=== PATIENT | male | born 1945 | race Caucasian/White ===

== ENCOUNTER 2019-01-24 15:09 | Inpatient (IN) | payer MEDICARE, OTHER ==
[~2019-01-24] VITALS: Ht 170.2 cm; Wt 80.3 kg
[~2019-01-24 15:09] MED LIST: ACET-2031 PO; ALBU8.5H IH; ALBU8HFA INH; AZIT-1 PO; AZIT-9 PO; BUDE10.2 IH; CEFU250 PO; GLUC1TAB13 PO; GUALA600 PO; IBU200 PO; LEV100 PO; LEVO-317 PO; MELO-149 PO; MELO-150 PO; METH4TAB66 PO; MULT-1335 PO; MULT-865 PO; PRE10 PO; ROBC PO; SILD100T59 PO
[2019-01-24] MEDS ORDERED: AZITHROMYCIN(*) 500 MG 500 MG in NS(*) 0.9% 250 ML BAG 250 ML IVPB ONE (15:30)
[2019-01-24] MEDS ORDERED: LR IV ONE (15:30)
[2019-01-24] MEDS ORDERED: cefTRIAXone(*) 1 GM VIAL 1 GM in NS(*) 0.9% 100 ML MINI-BAG 100 ML IVPB ONE (15:30)
[2019-01-24 15:48] LABS: PLATELET COUNT, AUTOMATED 250 K/uL (150-450)
--- NOTE | 2019-01-24 15:48 | ER Report ---
History and Physical Time Seen By MD: 15:15 Hx. of Stated Complaint: SOB, PAIN WITH COUGHING AND PHLEGM TINGED BLOOD (SHEKHAR ROBLERO MD) HPI/ROS CHIEF COMPLAINT: Cough, difficulty breathing HISTORY OF PRESENT ILLNESS: 73-year-old male history of sleep apnea, without CHF or COPD or tobacco use, presents with 6 days of cough, congested feeling on the left lower chest, increased difficulty breathing. This is been worse overnight. He states he has been trying to drink fluids but feels he probably has not had e nough. He complains of tightness in the lower left chest area that he feels is associated with congestion. He denies chest pain or pressure. He states he feels occasional chills. He feels fatigued. He has no focal weakness. He denies nausea, vomiting, abdominal pain, change in urination, leg swelling. He has no recent significant travel. He has no sick contacts. REVIEW OF SYSTEMS: Constitutional: chills Eyes: no blurred vision ENT: No sore throat. Cardiovascular: No chest pain, no palpitations. Respiratory: above Gastrointestinal: No abdominal pain, no vomiting. Genitourinary: no dysuria Musculoskeletal: No back pain. Skin: No rashes. Neurological: No headache. Remainder of the 14 system rev: Yes (SHEKHAR ROBLERO MD) Allergies: Coded Allergies: No Known Drug Allergies (Unverified , 12/28/14) Home Meds Reported Medications Sildenafil Citrate (VIAGRA) 100 Mg Tablet, 1 TAB PO QDAY PRN for sexual activity 12/28/14 Glucosamine Hcl/Chondr Duke A Na (OSTEO BI-FLEX CAPLET) 1 Each Tablet, 1 TAB PO QDAY 06/29/14 Levothyroxine Sodium (LEVOXYL) 125 Mcg Tablet, 1 TAB PO QDAY 06/28/14 Albuterol Sulfate 90 Mcg/Act (PROAIR HFA 90 MCG/ACT) 8.5 Gm Hfa.aer.ad, 2 PUFF IH QID PRN for shortness of breath 06/28/14 Multivitamin (DAILY MULTIPLE VITAMIN) 1 Each Tablet, 1 TAB PO DAILY 06/28/14 Meloxicam (MOBIC) 15 Mg Tablet, 1 TAB PO QDAY PRN for pain 06/28/14 Discontinued Scripts Guaifenesin/Codeine (GUAIFENESIN-CODEINE SYRUP) 5 Ml Syrp, 5 ML PO Q6H PRN for COUGH, #120 ML 0 Refills Prov:KEISHA ACE MD 09/03/16 Methylprednisolone (METHYLPREDNISOLONE) 4 Mg Tab.ds.pk, 4 MG PO DIRECTED, #1 PACK 0 Refills Prov:KEISHA ACE MD 09/03/16 Azithromycin (ZITHROMAX) 250 Mg Tablet, 2 TAB PO DIRECTED, #6 TAB 0 Refills Take 2 tablets today, then one daily for 4 more days. Prov:KEISHA ACE MD 09/03/16 Reviewed Nurses Notes: Yes Old Medical Records Reviewed: Yes (SHEKHAR ROBLERO MD) Hx Smoking: No Smoking Status: Never Smoker Exposure to Second Hand Smoke?: Yes (also workd in [employer] and exposed to fumes) Hx Substance Use Disorder: No Hx Alcohol Use: Yes (SHEKHAR ROBLERO MD) Constitutional Vital Sign - Last 24 Hours 01/24/19 01/24/19 01/24/19 01/24/19 15:09 15:14 15:15 15:39 Temp 99.2 Pulse ??? 125 117 Resp 19 19 B/P (MAP) 129/79 129/79 (96) Pulse Ox 89 89 O2 Delivery Room Air 01/24/19 01/24/19 01/24/19 01/24/19 16:00 16:09 16:14 16:33 Pulse 114 Resp 22 B/P (MAP) 110/76 (87) 113/84 (94) Pulse Ox 93 O2 Flow Rate 1.0 01/24/19 01/24/19 01/24/19 01/24/19 16:39 17:00 17:00 17:30 Pulse 106 104 108 Resp 34 25 B/P (MAP) 115/85 (95) 115/85 (95) 122/94 (103) Pulse Ox 92 91 89 01/24/19 01/24/19 01/24/19 01/24/19 18:15 18:30 18:35 19:00 Pulse 107 107 Resp 32 27 B/P (MAP) 123/87 (99) 115/78 (90) 121/79 (93) Pulse Ox 91 92 01/24/19 19:05 Pulse 103 Resp 22 Pulse Ox 92 (SHEKHAR CARRANZA MD) Physical Exam General Appearance: The patient is alert, has no immediate need for airway protection and no signs of toxicity. Eyes: Pupils equal and round no pallor or injection. ENT, Mouth: Mucous membranes are moist. Respiratory: left lower thoracic congestion, frequent cough Cardiovascular: tachycardia, no m/r/g Gastrointestinal: Abdomen is soft and non tender, no masses, bowel sounds normal. Neurological: alert, oriented, nad Skin: mild diaphoresis Musculoskeletal: Extremities are nontender, nonswollen and have full range of motion. DIFFERENTIAL DIAGNOSIS: After history and physical exam differential diagnosis was considered for pneumonia, sepsis, pleural effusion, acs, or other emergent cause of symptoms (SHEKHAR ROBLERO MD) Medical Decision Making Data Points Result Diagram: 01/25/19 0535 01/25/19 0535 Laboratory Hematology Test 01/24/19 15:20 01/24/19 19:47 Red Blood Count 4.70 M/uL (4.00-5.60) Mean Corpuscular Volume 89.7 fL (80.0-96.0) Mean Corpuscular Hemoglobin 31.2 pg (26.0-33.0) Mean Corpuscular Hemoglobin Concent 34.8 g/dL (32.0-36.0) Red Cell Distribution Width 12.9 % (11.5-14.5) Mean Platelet Volume 7.0 fL (7.2-11.1) Neutrophils (%) (Auto) % (39.4-72.5) Lymphocytes (%) (Auto) % (17.6-49.6) Monocytes (%) (Auto) % (4.1-12.4) Eosinophils (%) (Auto) % (0.4-6.7) Basophils (%) (Auto) % (0.3-1.4) Nucleated RBC Relative Count (auto) /100WBC Neutrophils # (Auto) K/uL (2.0-7.4) Lymphocytes # (Auto) K/uL (1.3-3.6) Monocytes # (Auto) K/uL (0.3-1.0) Eosinophils # (Auto) K/uL (0.0-0.5) Basophils # (Auto) K/uL (0.0-0.1) Nucleated RBC Absolute Count (auto) K/uL Neutrophils % (Manual) 62 % (39.4-72.5) Band Neutrophils % 16 % Lymphocytes % (Manual) 8 % (17.6-49.6) Monocytes % (Manual) 2 % (4.1-12.4) Eosinophils % (Manual) 0 % (0.4-6.7) Basophils % (Manual) 0 % (0.3-1.4) Metamyelocytes % 3 % Myelocytes % 9 % Peripheral Blood Smear Yes Y/N Sodium Level 126 mmol/L (137-145) Potassium Level 4.2 mmol/L (3.5-5.0) Chloride Level 91 mmol/L (98-107) Carbon Dioxide Level 23 mmol/L (22-30) Blood Urea Nitrogen 23 mg/dl (9-21) Creatinine 1.00 mg/dl (0.66-1.25) Glomerular Filtration Rate Calc > 60.0 Random Glucose 150 mg/dl (75-110) Lactate 2.7 mmol/L (0.7-2.1) Calcium Level 8.5 mg/dl (8.4-10.2) Total Bilirubin 1.1 mg/dl (0.2-1.3) Aspartate Amino Transf (AST/SGOT) 40 U/L (0-35) Alanine Aminotransferase (ALT/SGPT) 28 U/L (0-56) Alkaline Phosphatase 81 U/L (0-126) Troponin I < 0.012 ng/ml Total Protein 7.0 g/dl (6.3-8.2) Albumin 3.7 g/dl (3.5-5.0) Urine Color Yellow Urine Clarity Clear Urine pH 6.0 pH (4.8-9.5) Urine Specific [place] 1.018 Urine Protein Negative mg/dL (NEGATIVE) Urine Glucose (UA) Negative mg/dL (NEGATIVE) Urine Ketones Negative mg/dL (NEGATIVE) Urine Blood Negative (NEGATIVE) Urine Nitrite Negative (NEGATIVE) Urine Bilirubin Negative (NEGATIVE) Urine Urobilinogen Negative mg/dL (0.2-1.9) Urine Leukocyte Esterase Negative (NEGATIVE) Urine RBC <1 /HPF (0-2/HPF) Urine WBC <1 /HPF (0-5/HPF) Urine Squamous Epithelial Cells Few /LPF (</=FEW) Urine Bacteria Negative /HPF (NONE-FEW) Urine Mucus None /HPF (NONE-FEW) Chemistry Test 01/24/19 15:20 01/24/19 19:47 White Blood Count 12.4 k/uL (4.5-11.0) Red Blood Count 4.70 M/uL (4.00-5.60) Hemoglobin 14.7 g/dL (14.0-18.0) Hematocrit 42.2 % (42.0-52.0) Mean Corpuscular Volume 89.7 fL (80.0-96.0) Mean Corpuscular Hemoglobin 31.2 pg (26.0-33.0) Mean Corpuscular Hemoglobin Concent 34.8 g/dL (32.0-36.0) Red Cell Distribution Width 12.9 % (11.5-14.5) Platelet Count 250 K/uL (150-450) Mean Platelet Volume 7.0 fL (7.2-11.1) Neutrophils (%) (Auto) % (39.4-72.5) Lymphocytes (%) (Auto) % (17.6-49.6) Monocytes (%) (Auto) % (4.1-12.4) Eosinophils (%) (Auto) % (0.4-6.7) Basophils (%) (Auto) % (0.3-1.4) Nucleated RBC Relative Count (auto) /100WBC Neutrophils # (Auto) K/uL (2.0-7.4) Lymphocytes # (Auto) K/uL (1.3-3.6) Monocytes # (Auto) K/uL (0.3-1.0) Eosinophils # (Auto) K/uL (0.0-0.5) Basophils # (Auto) K/uL (0.0-0.1) Nucleated RBC Absolute Count (auto) K/uL Neutrophils % (Manual) 62 % (39.4-72.5) Band Neutrophils % 16 % Lymphocytes % (Manual) 8 % (17.6-49.6) Monocytes % (Manual) 2 % (4.1-12.4) Eosinophils % (Manual) 0 % (0.4-6.7) Basophils % (Manual) 0 % (0.3-1.4) Metamyelocytes % 3 % Myelocytes % 9 % Peripheral Blood Smear Yes Y/N Glomerular Filtration Rate Calc > 60.0 Lactate 2.7 mmol/L (0.7-2.1) Calcium Level 8.5 mg/dl (8.4-10.2) Total Bilirubin 1.1 mg/dl (0.2-1.3) Aspartate Amino Transf (AST/SGOT) 40 U/L (0-35) Alanine Aminotransferase (ALT/SGPT) 28 U/L (0-56) Alkaline Phosphatase 81 U/L (0-126) Troponin I < 0.012 ng/ml Total Protein 7.0 g/dl (6.3-8.2) Albumin 3.7 g/dl (3.5-5.0) Urine Color Yellow Urine Clarity Clear Urine pH 6.0 pH (4.8-9.5) Urine Specific [place] 1.018 Urine Protein Negative mg/dL (NEGATIVE) Urine Glucose (UA) Negative mg/dL (NEGATIVE) Urine Ketones Negative mg/dL (NEGATIVE) Urine Blood Negative (NEGATIVE) Urine Nitrite Negative (NEGATIVE) Urine Bilirubin Negative (NEGATIVE) Urine Urobilinogen Negative mg/dL (0.2-1.9) Urine Leukocyte Esterase Negative (NEGATIVE) Urine RBC <1 /HPF (0-2/HPF) Urine WBC <1 /HPF (0-5/HPF) Urine Squamous Epithelial Cells Few /LPF (</=FEW) Urine Bacteria Negative /HPF (NONE-FEW) Urine Mucus None /HPF (NONE-FEW) Urinalysis Test 01/24/19 19:47 Urine Color Yellow Urine Clarity Clear Urine pH 6.0 pH (4.8-9.5) Urine Specific [place] 1.018 Urine Protein Negative mg/dL (NEGATIVE) Urine Glucose (UA) Negative mg/dL (NEGATIVE) Urine Ketones Negative mg/dL (NEGATIVE) Urine Blood Negative (NEGATIVE) Urine Nitrite Negative (NEGATIVE) Urine Bilirubin Negative (NEGATIVE) Urine Urobilinogen Negative mg/dL (0.2-1.9) Urine Leukocyte Esterase Negative (NEGATIVE) Urine RBC <1 /HPF (0-2/HPF) Urine WBC <1 /HPF (0-5/HPF) Urine Squamous Epithelial Cells Few /LPF (</=FEW) Urine Bacteria Negative /HPF (NONE-FEW) Urine Mucus None /HPF (NONE-FEW) (SHEKHAR CARRANZA MD) EKG/Imaging EKG Interpretation 12 lead EKG: Rhythm: sinus tachycardia [place]: right axis deviation QRS: widened ST segments: c/w rbbb sinus tachycardia with rbbb EKG morphology unchanged from 2014 Monitor Interpretation: Sinus Tachycardia (SHEKHAR ROBLERO MD) ED Course/Re-evaluation ED Course 73 m presents with sgs/symptoms of pneumonia with dehydration/early sepsis. IVF 30 cc/kg initiated, cultures drawn and abx initated early. Remains hd stable in ED. cxr shows atypical l sided pneumonia; ct ordered to better delineate. Decision to Disposition Date: January 24, 2019 Decision to Disposition Time: 17:07 (SHEKHAR ROBLERO MD) Decision to Disposition Date: January 24, 2019 Decision to Disposition Time: 20:21 Turned Over 01/24/2019 6:27:25 pm and assumed care of patient at this time briefly a 73-year-old male who is being treated for sepsis and pneumonia. CT scan of the chest is pending prior to admission. (SHEKHAR CARRANZA MD) Depart Departure Latest Vital Signs Vital Signs Date Time Temp Pulse Resp B/P (MAP) Pulse Ox O2 Delivery O2 Flow Rate FiO2 01/24/19 19:05 103 22 92 01/24/19 19:00 121/79 (93) 01/24/19 16:00 1.0 01/24/19 15:14 99.2 Room Air (SHEKHAR CARRANZA MD) Impression: Primary Impression: Pneumonia Condition: Improved Disposition: Admitted from ER Referrals: OSWALD ANDERSEN MD (PCP) Problem Qualifiers Primary Impression: Pneumonia Pneumonia type: due to unspecified organism Laterality: left Lung location: unspecified part of lung Qualified Codes: J18.9 - Pneumonia, unspecified organism SHEKHAR ROBLERO MD January 24, 2019 15:48 SHEKHAR CARRANZA MD January 24, 2019 18:27
--- NOTE | 2019-01-24 15:54 | EKG ---
FACILITY: [facility] PATIENT NAME: GLEN ROJO : [id number] MR: [id number] V: [id number] EXAM DATE: ORDERING PHYSICIAN: SHEKHAR ROBLERO TECHNOLOGIST: MOIRA Test Reason : CHEST PAIN Blood Pressure : / mmHG Vent. Rate : 115 BPM Atrial Rate : 115 BPM P-R Int : 142 ms QRS Dur : 132 ms QT Int : 354 ms P-R-T Axes : 054 -08 019 degrees QTc Int : 489 ms Sinus tachycardia Right bundle branch block Abnormal ECG When compared with ECG of 22-FEB-2014 13:31, Vent. rate has increased BY 45 BPM T wave inversion now evident in Anterior leads Confirmed by LINO MARTINEZ ([id number]) on 01/24/2019 7:09:35 PM Referred By: OSBALDO Confirmed By:LINO MARTINEZ
--- NOTE | 2019-01-24 16:41 | RADIOLOGY IMAGING REPORT ---
FACILITY: [facility] [place] PATIENT NAME: Toya Banuelos : 1945 MR: [id number] V: [id number] EXAM DATE: ORDERING PHYSICIAN: SHEKHAR ROBLERO TECHNOLOGIST: Location: [facility] [place] Patient: Toya Banuelos : 1945 Visit/Account:[id number] Date of Sevice: 01/24/2019 CHEST PA LAT Additional pertinent History: Chest pain COMPARISON STUDIES: 09/03/2016 FINDINGS: Support lines and catheters: Oxygen tubing Lungs and Pleura: There is a dense ovoid opacity extending from the posterior right sixth rib to the posterior ninth rib measuring 12 x 5.5 cm in dimension. There is a peripheral hazy opacity circumscr ibing the superior medial and inferior aspects of this opacity partially obscuring the medial aspect of the left hemidiaphragm on the AP and posterior aspect of the hemidiaphragm on the lateral. Right l fanny field is clear.. Heart and vasculature: Negative. Dora and Mediastinum: Negative. Bones and Chest wall: Negative. Upper Abdomen: Negative. IMPRESSION: 1. Parenchymal mass density in the left lung. Differential includes both pneumonic and neoplastic pro cesses. Recommend clinical correlation and appropriate follow-up. Report Dictated By: Bobby Watt MD at 01/24/2019 4:33 PM Report E-Signed By: Bobby Watt MD at 01/24/2019 4:37 PM WSN:[id number]
[2019-01-24] MEDS ORDERED: methylPREDNIS SUCC 125 MG/2ML IVP ONE (17:10)
[2019-01-24] MEDS ORDERED: LR(*) 1000 ML BAG 1,000 ML ONE (17:26)
[2019-01-24] MEDS ORDERED: IOPAMIDOL 76% 100 ML INFUS BTL 100 ML ONE (18:06)
[2019-01-24] MEDS ORDERED: NS(*) 0.9% 50 ML BAG 50 ML ONE (18:06)
--- NOTE | 2019-01-24 19:56 | RADIOLOGY IMAGING REPORT ---
FACILITY: [facility] PATIENT NAME: Toya Banuelos : 1945 MR: [id number] V: [id number] EXAM DATE: ORDERING PHYSICIAN: SHEKHAR ROBLERO TECHNOLOGIST: Location: [facility] [place] Patient: Toya Banuelos : 1945 Visit/Account:[id number] Date of Sevice: 01/24/2019 EXAMINATION: CTA of the chest with IV contrast HISTORY: Dyspnea. Left-sided atypical infiltrate. COMPARISON: Chest radiograph from the same day. TECHNIQUE: Pulmonary embolus protocol - Thin-slice axial imaging of the chest was performed during maximal pulmonary arterial opacification with intravenous nonionic iodinated contrast. 3D coronal sla b MIPs and 2D reconstructions in the coronal and sagittal planes were performed to aid in pulmonary e mbolus detection. Dock Operator images have been stored on PACS. CONTRAST: 75 mL of IV Isovue-370 One of the following dose optimization techniques was utilized in the performance of this exam: Autom ated exposure control; adjustment of the mA and/or kV according to the patient's size; or use of an i terative reconstruction technique. Specific details can be referenced in the facility's radiology C T exam operational policy. FINDINGS: CTA CHEST: Please note that this exam is optimized for assessment of the pulmonary arteries and is not intended as a diagnostic study of the thoracic aorta, coronary arteries or venous structures. Angiographic Findings: Pulmonary arteries: There are no filling defects in the main, right, left, lobar, segmental or visual ized sub-segmental branches of the pulmonary arterial system. Other vasculature: Mild calcified plaque of the thoracic aorta. Additional non-angiographic findings: Lungs / Pleura: Extensive consolidation in the left lung within the upper and lower lobes. There is bronchiectasis in the left lower lobe and volume loss in the left lower lobe. There is a small left pleural effusion. There is patchy opacification in the airways in the left lung. Mediastinum / Dora: Negative. Heart / Pericardium: Negative. Musculoskeletal / Body wall: Chronic healed fracture deformities of multiple left-sided ribs. Multi level disc degenerative changes in the spine. Lymph node assessment: Multiple subcentimeter mediastinal lymph nodes. Lower neck: Negative. Visualized upper abdomen: Multiple hepatic cysts. A 1.2 cm hypoattenuating lesion in the head of the pancreas. IMPRESSION: No evidence of pulmonary embolism. Extensive consolidation in the left lung which likely represents pneumonia. There is also bronchiectasis and volume loss in the left lower lung lobe. Small left pleural effusion. A 1.2 cm hypoattenuating lesion in the neck of the pancreas which has been noted on multiple previous examinations and is unchanged. Report Dictated By: Lico Javed MD at 01/24/2019 7:35 PM Report E-Signed By: Lico Javed MD at 01/24/2019 7:52 PM WSN:[id number]
[2019-01-24] MEDS ORDERED: INFLUENZA VIRUS VAC 0.5ML SYR IM ONLY ONE (20:25)
[2019-01-24] MEDS ORDERED: ALBUTEROL 2.5 MG/3 ML NEB NEB PRN (20:25)
[2019-01-24] MEDS: ALBUTEROL/IPRATROPIUM 3 ML NEB NEB SCH (20:25)
[2019-01-24] MEDS ORDERED: ACETAMINOPHEN 500 MG TAB PO PRN (20:25)
[2019-01-24] MEDS ORDERED: cefTRIAXone 1 GM VIAL IVP ONE (20:25)
--- NOTE | 2019-01-24 20:53 | History & Physical ---
History of Present Illness History of Present Illness 73yo male with a h/o bronchiectasis and ADELAIDA who came to the ER for coughing and pleuritic chest pain for 3 days. About 7 days ago, he started feeling wheezy, achy, tired and chilled. Those symptoms persisted. 3 days ago, he developed a cough and pain in his left chest that worsened with coughing. The pain was dull, but could be severe. However, it resolved today after taking some ibuprofen. He denies diarrhea, vomiting. In the ER, he was tachycardic to 125 and had a sbp of 129. He was given 2.2 liters of LR, ceftriaxone, azithromycin, and methylprednisolone. History Problems: (1) Hypothyroidism Status: Acute (2) Bronchiectasis without acute exacerbation Status: Acute Home Meds Reported Medications Sildenafil Citrate (VIAGRA) 100 Mg Tablet, 1 TAB PO QDAY PRN for sexual activity 12/28/14 Glucosamine Hcl/Chondr Duke A Na (OSTEO BI-FLEX CAPLET) 1 Each Tablet, 1 TAB PO QDAY 06/29/14 Levothyroxine Sodium (LEVOXYL) 125 Mcg Tablet, 1 TAB PO QDAY 06/28/14 Albuterol Sulfate 90 Mcg/Act (PROAIR HFA 90 MCG/ACT) 8.5 Gm Hfa.aer.ad, 2 PUFF IH QID PRN for shortness of breath 06/28/14 Multivitamin (DAILY MULTIPLE VITAMIN) 1 Each Tablet, 1 TAB PO DAILY 06/28/14 Meloxicam (MOBIC) 15 Mg Tablet, 1 TAB PO QDAY PRN for pain 06/28/14 Discontinued Scripts Guaifenesin/Codeine (GUAIFENESIN-CODEINE SYRUP) 5 Ml Syrp, 5 ML PO Q6H PRN for COUGH, #120 ML 0 Refills Prov:KEISHA ACE MD 09/03/16 Methylprednisolone (METHYLPREDNISOLONE) 4 Mg Tab.ds.pk, 4 MG PO DIRECTED, #1 PACK 0 Refills Prov:KEISHA ACE MD 09/03/16 Azithromycin (ZITHROMAX) 250 Mg Tablet, 2 TAB PO DIRECTED, #6 TAB 0 Refills Take 2 tablets today, then one daily for 4 more days. Prov:KEISHA ACE MD 09/03/16 Allergies: Coded Allergies: No Known Drug Allergies (Unverified , 12/28/14) Patient History: FH: HTN (hypertension) FATHER, , Age:83 BROTHER OR SISTER, Age:66 FH: NV (myocardial infarction) BROTHER OR SISTER, Age:66 FH: abdominal aortic aneurysm MOTHER, , Age:80 FH: diabetes mellitus MOTHER, , Age:80 PATERNAL COUSINS x2 FH: pancreatic cancer BROTHER OR SISTER, , Age:55 FH: smoking FATHER, , Age:83 Stent BROTHER OR SISTER, Age:66 Other Social/Family Hx Never any tobacco use. 1-2 glasses of wine daily. Retired. Hx Smoking: No Smoking Status: Never Smoker Exposure to Second Hand Smoke?: Yes (also workd in [employer] and exposed to fumes) Hx Alcohol Use: Yes Hx Substance Use Disorder: No Review of Systems All Systems Reviewed/Normal: Yes, Except as Noted Exam Vital Signs Vital Signs Date Time Temp Pulse Resp B/P (MAP) Pulse Ox O2 Delivery O2 Flow Rate FiO2 01/24/19 19:05 103 22 92 01/24/19 19:00 121/79 (93) 01/24/19 16:00 1.0 01/24/19 15:14 99.2 Room Air General Appearance: Alert, Awake, No Acute Distress Neuro: No Gross deficits, Other (Knows where he is, the events today, but sometime repeats himself.) Eyes: PERRLA ENT: Moist Mucous Membranes Cardiovascular: Regular Rate and Rhythm Respiratory: Other (Insp crackles and course BS over left lung.) GI: Abd Soft and Non-Tender Extremities: No Edema Integumentary: No Jaundice, No Cyanosis Medical Decision Making Data Points Result Diagram: 01/24/19 1520 01/24/19 1520 Item Value Date Time Neutrophils % (Manual) 62 % 01/24/19 1520 Band Neutrophils % 16 % 01/24/19 1520 Lymphocytes % (Manual) 8 % L 01/24/19 1520 Monocytes % (Manual) 2 % L 01/24/19 1520 Lactate 2.7 mmol/L H 01/24/19 1520 Calcium Level 8.5 mg/dl 01/24/19 1520 Total Bilirubin 1.1 mg/dl 01/24/19 1520 Aspartate Amino Transf (AST/SGOT) 40 U/L H 01/24/19 1520 Alkaline Phosphatase 81 U/L 01/24/19 1520 Troponin I < 0.012 ng/ml 01/24/19 1520 Alanine Aminotransferase (ALT/SGPT) 28 U/L 01/24/19 1520 Urine RBC <1 /HPF 01/24/191946 Urine WBC <1 /HPF 01/24/191946 Urine Squamous Epithelial Cells Few /LPF 01/24/191946 EKG / Imaging EKG Interpretation Vent. Rate : 115 BPM Atrial Rate : 115 BPM P-R Int : 142 ms QRS Dur : 132 ms QT Int : 354 ms P-R-T Axes : 054 -08 019 degrees QTc Int : 489 ms Sinus tachycardia Right bundle branch block Abnormal ECG When compared with ECG of 22-FEB-2014 13:31, Vent. rate has increased BY 45 BPM T wave inversion now evident in Anterior leads Confirmed by LINO MARTINEZ ([id number]) on 01/24/2019 7:09:35 PM Imaging Chest CTA - No evidence of pulmonary embolism. Extensive consolidation in the left lung which likely represents pneumonia. There is also bronchiectasis and volume loss in the left lower lung lobe. Small left pleural effusion. A 1.2 cm hypoattenuating lesion in the neck of the pancreas which has been noted on multiple previous examinations and is unchanged. CXR - 1. Parenchymal mass density in the left lung. Differential includes both pneumonic and neoplastic processes. Recommend clinical correlation and appropriate follow-up. Assessment and Plan Problems: (1) Pneumonia Status: Acute Assessment & Plan: He presented with a week of malaise and 3 days of cough/pleuritic chest pain. He has an elevated WBC with bandemia, hypoxia, mildly elevated lactate, tachycardia and a CT consistent with a diffuse consolidation in the left lung. He was given 2.2 liters of LR in the ER, which brought down his heart rate. He has been started on methylprednisolone, Mucinex, DuoNebs, prn albuterol, ceftriaxone and azithromycin. BP/P stable. He is breathing comfortably. 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 Follow closely. (3) Bronchiectasis without acute exacerbation Status: Acute Assessment & Plan: He reports being cured of bronchiectasis in the left lung by a rn care manager a number of years ago with inhalers. It is seen on the CT. See above. If not improving, will need to broaden coverage for pseudomonas. Copies to: DIPIKA MITCHELL ; Venous Thromboembolism Antithrombotics Is Pt On Any Antithrombotics?: No Exam Sepsis Risk: No Definite Risk Problem Qualifiers (1) Pneumonia: Pneumonia type: due to unspecified organism Laterality: left Lung location: unspecified part of lung Qualified Codes: J18.9 - Pneumonia, unspecified organism LINO MARTINEZ MD January 24, 2019 20:53
[2019-01-24 21:23] VITALS: BP 126/92
[2019-01-24] MEDS: guaiFENesin 600 MG TABCR PO SCH (22:15)
[2019-01-24] MEDS: KCL/D1/2NS 20 MEQ 1000 ML 1,000 ML IV PRN (22:17)
[2019-01-24 22:26] VITALS: BP 129/90
[2019-01-24] MEDS ORDERED: cefTRIAXone 1 GM VIAL ONE (22:42)
[2019-01-25] MEDS ORDERED: methylPREDNIS SUCC 125 MG/2ML IVP SCH (01:00)
[2019-01-25 01:18] VITALS: BP 140/92
[2019-01-25 05:44] LABS: PLATELET COUNT, AUTOMATED 216 K/uL (150-450)
[2019-01-25] MEDS: ALBUTEROL/IPRATROPIUM 3 ML NEB NEB SCH ×3 (05:50→17:06)
[2019-01-25] MEDS: LEVOTHYROXINE SOD 0.125 MG TAB PO SCH (06:13)
[2019-01-25 06:30] VITALS: BP 118/91
--- NOTE | 2019-01-25 09:47 | Hospitalist Progress Note ---
Subjective Progress Notes Subjective He reports feeling improved. Blood cultures are reported to be growing GNR. Physical Exam Vital Signs Date Time Temp Pulse Resp B/P (MAP) Pulse Ox O2 Delivery O2 Flow Rate FiO2 01/25/19 06:30 97.7 106 18 118/91 (100) 93 Nasal Cannula 2.0 Intake and Output 01/25/19 07:00 Intake Total 4550 ml Balance 4550 ml Intake Oral 1200 ml IV Total 3350 ml # Voids 6 General Appearance: Alert, Awake Cardiovascular: Regular Rate and Rhythm Respiratory: Other (rales right posterior chest mid-lung and base) GI: Soft and Non-Tender Extremities: Warm, Perfused Result Diagram: 01/25/19 0535 01/25/19 0535 Monitor Interpretation: Sinus Tachycardia Assessment and Plan Problems: (1) Pneumonia Status: Acute Assessment & Plan: He presented with a week of malaise and 3 days of cough/pleuritic chest pain. He has an elevated WBC with bandemia, hypoxia, mildly elevated lactate, tachycardia and a CT consistent with a diffuse consolidation in the left lung. He has been started on methylprednisolone, Mucinex, DuoNebs, prn albuterol, ceftriaxone and azithromycin. His cultures are now growing GNR. I suspect he may have the bronchiectasis as the etiology. Given this, he would be risk for resistant organisms, so will switch to cefepime 2gm IV q12hrs. Await culture results. 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 Follow closely. (3) Bronchiectasis without acute exacerbation Status: Acute Assessment & Plan: He reports being "cured" of bronchiectasis in the left lung by a manager of quality a number of years ago with inhalers. It is seen on the CT. See above. Will need to broaden coverage for pseudomonas. Await culture results. Exam Sepsis Risk: Sepsis Risk Problem Qualifiers (1) Pneumonia: Pneumonia type: due to unspecified organism Laterality: left Lung location: unspecified part of lung Qualified Codes: J18.9 - Pneumonia, unspecified organism JANETH JIM MD January 25, 2019 09:47
[2019-01-25] MEDS: ENOXAPARIN 40 MG/0.4ML SYR SC SCH (09:49)
[2019-01-25] MEDS: CEFEPIME HCL 2 GM VIAL IVP SCH ×2 (09:49→21:12)
[2019-01-25] MEDS: methylPREDNIS SUCC 125 MG/2ML IVP SCH ×2 (09:50→21:13)
[2019-01-25] MEDS: guaiFENesin 600 MG TABCR PO SCH ×2 (09:50→21:12)
[2019-01-25 10:11] VITALS: Ht 170.2 cm; Wt 80.3 kg
[2019-01-25 14:28] VITALS: BP 149/93
[2019-01-25] MEDS ORDERED: NS(*) 0.9% 250 ML BAG 250 ML ONE (16:11)
[2019-01-25] MEDS: AZITHROMYCIN(*) 500 MG 500 MG in NS(*) 0.9% 250 ML BAG 250 ML IVPB SCH (16:15)
[2019-01-25] MEDS: KCL/D1/2NS 20 MEQ 1000 ML 1,000 ML IV PRN (17:38)
[2019-01-25] MEDS: NAPROXEN 500 MG TAB PO PRN (17:44)
[2019-01-25] MEDS ORDERED: cefTRIAXone 2 GM VIAL IVP SCH (18:00)
[2019-01-25 19:33] VITALS: BP 127/87
[2019-01-26] MEDS: LEVOTHYROXINE SOD 0.125 MG TAB PO SCH (04:45)
[2019-01-26 04:46] VITALS: BP 153/93
[2019-01-26 05:57] LABS: PLATELET COUNT, AUTOMATED 254 K/uL (150-450)
[2019-01-26] MEDS: ALBUTEROL/IPRATROPIUM 3 ML NEB NEB SCH ×3 (06:17→18:19)
[2019-01-26 06:49] VITALS: BP 130/90
[2019-01-26] MEDS: ENOXAPARIN 40 MG/0.4ML SYR SC SCH (08:14)
[2019-01-26] MEDS: predniSONE 10 MG TAB PO SCH (08:14)
[2019-01-26] MEDS: guaiFENesin 600 MG TABCR PO SCH ×2 (08:14→21:09)
[2019-01-26] MEDS: CEFEPIME HCL 2 GM VIAL IVP SCH ×2 (08:15→21:09)
--- NOTE | 2019-01-26 09:39 | Hospitalist Progress Note ---
Subjective Progress Notes Subjective This patient was admitted for pneumonia. He had no acute events overnight. Patient Complains of: Cardiovascular: No: Chest Pain Respiratory: No: Shortness of Breath Physical Exam Vital Signs Date Time Temp Pulse Resp B/P (MAP) Pulse Ox O2 Delivery O2 Flow Rate FiO2 01/26/19 08:15 96 Nasal Cannula 2.0 01/26/19 06:49 97.8 97 16 130/90 (103) Intake and Output 01/26/19 07:00 Intake Total 690 ml Balance 690 ml Intake Oral 690 ml # Voids 5 Cardiovascular: Regular Rate and Rhythm Respiratory: Clear to Auscultation Extremities: No Edema Integumentary: No Cyanosis Result Diagram: 01/26/19 0535 01/26/19 0535 Monitor Interpretation: Sinus Tachycardia Assessment and Plan Problems: (1) Pneumonia Status: Acute Assessment & Plan: He presented with cough and pleuritic chest pain. He also had an elevated WBC with bandemia, hypoxia, mildly elevated lactate, tachycardia and a CT consistent with a diffuse consolidation in the left lung. He was started on methylprednisolone and empiric treatment with azithromycin and cefepime. His cultures are both growing a gram negative danni. (2) Hyponatremia Status: Acute Assessment & Plan: His levels improved with IV fluids. (3) Bronchiectasis without acute exacerbation Status: Acute Assessment & Plan: He reports being "cured" of bronchiectasis in the left lung by a customer service teller a number of years ago with inhalers. However, it is still present on the CT scan. (4) Sepsis Assessment & Plan: He is on antibiotics as above. Exam Sepsis Risk: Sepsis Risk Problem Qualifiers (1) Pneumonia: Pneumonia type: due to unspecified organism Laterality: left Lung location: unspecified part of lung Qualified Codes: J18.9 - Pneumonia, unspecified organism SEVEN TOMLINSON DO January 26, 2019 09:39
--- NOTE | 2019-01-26 10:10 | Antimicrobial Stewardship ---
Antimicrobial Time Out Antimicrobial Stewardship MD Service: Hospitalist Indications: CAP Antimicrobial Used Rocephin and Zithromax IV started on 01/24. Rocephin changed to Cefepime on 01/25 to broaden coverage. Start Date: January 24, 2019 Culture Results: Yes (GNR with final culture results to follow.) NIKOLE FRANCO January 26, 2019 10:10
[2019-01-26 10:57] VITALS: BP 126/90
[2019-01-26 14:31] VITALS: BP 116/80
[2019-01-26] MEDS: AZITHROMYCIN(*) 500 MG 500 MG in NS(*) 0.9% 250 ML BAG 250 ML IVPB SCH (15:15)
[2019-01-26 18:44] VITALS: BP 127/79
[2019-01-26] MEDS: NAPROXEN 500 MG TAB PO PRN (19:29)
[2019-01-27 03:24] VITALS: BP 136/97
[2019-01-27 05:40] LABS: PLATELET COUNT, AUTOMATED 251 K/uL (150-450)
[2019-01-27] MEDS: ALBUTEROL/IPRATROPIUM 3 ML NEB NEB SCH ×3 (05:48→16:38)
[2019-01-27] MEDS: LEVOTHYROXINE SOD 0.125 MG TAB PO SCH (06:01)
[2019-01-27 07:08] VITALS: BP 137/88
[2019-01-27] MEDS: predniSONE 10 MG TAB PO SCH (09:30)
[2019-01-27] MEDS: guaiFENesin 600 MG TABCR PO SCH ×2 (09:30→21:07)
[2019-01-27] MEDS: ENOXAPARIN 40 MG/0.4ML SYR SC SCH (09:31)
[2019-01-27] MEDS: CEFEPIME HCL 2 GM VIAL IVP SCH (09:31)
--- NOTE | 2019-01-27 09:53 | Hospitalist Progress Note ---
Subjective Progress Notes Subjective He reports that he his overall feeling better. No longer having the left sided chest pain. He is moving around his room well, per staff. Physical Exam Vital Signs Date Time Temp Pulse Resp B/P (MAP) Pulse Ox O2 Delivery O2 Flow Rate FiO2 01/27/19 07:08 97.7 91 20 137/88 (104) 93 Nasal Cannula 1.0 Intake and Output 01/27/19 07:00 Intake Total 632 ml Balance 632 ml Intake Oral 360 ml IV Total 272 ml # Voids 4 # Bowel Movements 1 General Appearance: Alert, Awake, No Acute Distress Cardiovascular: Regular Rate and Rhythm Respiratory: Other (Left lung with insp/exp crackles to mid with some bronchial breath sounds in same area.) Extremities: No Edema Result Diagram: 01/27/19 0531 01/26/19 0535 Monitor Interpretation: Sinus Tachycardia Assessment and Plan Problems: (1) Pneumonia Status: Acute Assessment & Plan: He presented with a week of malaise and 3 days of cough/pleuritic chest pain. He also had an elevated WBC with bandemia, hypoxia, mildly elevated lactate, tachycardia and a CT consistent with a diffuse co nsolidation in the left lung. He was started on methylprednisolone and empiric treatment with azithromycin and cefepime. His cultures are both growing H. influenza. Bronchiectasis is likely the inciting source. He is now afebrile. BP/P stable. He will be switched to Omnicef and will need a total of 14 days of antibiotics. (2) Bronchiectasis without acute exacerbation Status: Acute Assessment & Plan: He reports being "cured" of bronchiectasis in the left lung by a direct support specialist a number of years ago with inhalers. However, it is still present on the CT scan. He will need follow up with Pulmonology. (3) Hyponatremia Status: Acute Assessment & Plan: His levels improved with treatment of the pneumonia. (4) Sepsis Assessment & Plan: He is on antibiotics as above. Exam Sepsis Risk: No Definite Risk Problem Qualifiers (1) Pneumonia: Pneumonia type: due to unspecified organism Laterality: left Lung location: unspecified part of lung Qualified Codes: J18.9 - Pneumonia, unspecified organism LINO MARTINEZ MD January 27, 2019 09:53
[2019-01-27 18:44] VITALS: BP 134/95
[2019-01-27] MEDS: CEFDINIR 300 MG CAP PO SCH (21:07)
[2019-01-28 02:25] VITALS: BP 144/96
[2019-01-28] MEDS: NAPROXEN 500 MG TAB PO PRN (02:37)
[2019-01-28] MEDS: ALBUTEROL/IPRATROPIUM 3 ML NEB NEB SCH ×2 (05:30→12:00)
[2019-01-28] MEDS: LEVOTHYROXINE SOD 0.125 MG TAB PO SCH (05:37)
[2019-01-28 06:50] VITALS: BP 136/94
[2019-01-28] MEDS: ENOXAPARIN 40 MG/0.4ML SYR SC SCH (09:00)
[2019-01-28] MEDS ORDERED: AZIT-18 PO (09:24)
[2019-01-28] MEDS ORDERED: PRED-1 PO (09:24)
[2019-01-28] MEDS ORDERED: CEF300 PO (09:24)
[2019-01-28] MEDS: guaiFENesin 600 MG TABCR PO SCH (09:38)
[2019-01-28] MEDS: CEFDINIR 300 MG CAP PO SCH (09:38)
[2019-01-28] MEDS: predniSONE 10 MG TAB PO SCH (09:38)
--- NOTE | 2019-01-28 09:42 | Hospitalist Depart ---
Discharge Summary Reason for Hosp/Final Diag: (1) Pneumonia Status: Acute Hospital Course & Plan: He presented with a week of malaise and 3 days of cough/pleuritic chest pain. He also had an elevated WBC with bandemia, hypoxia, mildly elevated lactate, tachycardia and a CT consistent with a diffuse consolidation in the left lung. He was started on empiric treatment with IV azithromycin and cefepime as well as IV Solu-Medrol. His blood cultures both grew H. influenza which is beta lactamase negative. His bronchiectasis is possibly the inciting source. He has responded well to antibiotic therapy. He did not have any recurrent fever. His BP/P remained stable. He was switched to Omnicef 300mg PO BID for an additional 10 days of antibiotics (total 14 days of therapy). Due to his history of bronchiectasis, we will also start him on azithromycin 250mg PO daily following completion of the Omnicef. He will follow up with his primary care provider and pulmonology at the [facility] in [place], [place] to discuss ongoing management. He was also advised to continue regular cleaning/disinfecting of his BiPAP and consider purchasing a SoClean unit. (2) Sepsis Hospital Course & Plan: He did grow Haemophilus influenzae beta lactamase negative in blood cultures. He was treated with the antibiotics as noted above. He showed very good clinical response. (3) Bronchiectasis without acute exacerbation Status: Acute Hospital Course & Plan: He reports being "cured" of bronchiectasis in the left lung by a director of enterprise architecture a number of years ago. However, it does appear to be present on his CT scan. He will need close follow up with his primary care provider and Pulmonology. We have started him on azithromycin 250mg PO daily to start after completion of his Omnicef. (4) Hyponatremia Status: Acute Hospital Course & Plan: Most likely due to the pneumonia. His levels improved with treatment of the pneumonia. Departure Weight (Pounds): 177 Weight (Ounces): 8.0 Result Diagram: 01/27/19 0531 01/26/19 0535 Item Value Date Time Sodium Level 126 mmol/L L 01/24/19 1520 Potassium Level 4.2 mmol/L 01/24/19 1520 Chloride Level 91 mmol/L L 01/24/19 1520 Carbon Dioxide Level 23 mmol/L 01/24/19 1520 Blood Urea Nitrogen 23 mg/dl H 01/24/19 1520 Creatinine 1.00 mg/dl 01/24/19 1520 Glomerular Filtration Rate Calc > 60.0 01/24/19 1520 Random Glucose 150 mg/dl H 01/24/19 1520 Lactate 2.7 mmol/L H 01/24/19 1520 Calcium Level 8.5 mg/dl 01/24/19 1520 Total Bilirubin 1.1 mg/dl 01/24/19 1520 Aspartate Amino Transf (AST/SGOT) 40 U/L H 01/24/19 1520 Alanine Aminotransferase (ALT/SGPT) 28 U/L 01/24/19 1520 Alkaline Phosphatase 81 U/L 01/24/19 1520 Troponin I < 0.012 ng/ml 01/24/19 1520 Total Protein 7.0 g/dl 01/24/19 1520 Albumin 3.7 g/dl 01/24/19 1520 White Blood Count 12.4 k/uL H 01/24/19 1520 Hemoglobin 14.7 g/dL 01/24/19 1520 Hematocrit 42.2 % 01/24/19 1520 Platelet Count 250 K/uL 01/24/19 1520 White Blood Count 16.0 k/uL H 01/25/19 0535 Hemoglobin 13.3 g/dL L 01/25/19 0535 Hematocrit 38.5 % L 01/25/19 0535 Platelet Count 216 K/uL 01/25/19 0535 Platelet Count 254 K/uL 01/26/19 0535 Hematocrit 36.4 % L 01/26/19 0535 Hemoglobin 12.6 g/dL L 01/26/19 0535 White Blood Count 18.2 k/uL H 01/26/19 0535 Urine Color Yellow 01/24/191946 Urine Clarity Clear 01/24/191946 Urine pH 6.0 pH 01/24/191946 Urine Specific [place] 1.018 01/24/191946 Urine Protein Negative mg/dL 01/24/191946 Urine Glucose (UA) Negative mg/dL 01/24/191946 Urine Ketones Negative mg/dL 01/24/191946 Urine Blood Negative 01/24/191946 Urine Nitrite Negative 01/24/191946 Urine Bilirubin Negative 01/24/191946 Urine Urobilinogen Negative mg/dL 01/24/191946 Urine Leukocyte Esterase Negative 01/24/191946 Urine RBC <1 /HPF 01/24/191946 Urine WBC <1 /HPF 01/24/191946 Urine Squamous Epithelial Cells Few /LPF 01/24/191946 Urine Bacteria Negative /HPF 01/24/191946 Urine Mucus None /HPF 01/24/191946 [facility] *LIVE* [address] [facility] [place] [id number] BEAU MAYERS M.D., DIRECTOR OF LABORATORY SERVICES PRASAD VIRGEN M.D., PATHOLOGIST RUN DATE: 01/27/19 Specimen Inquiry Report PAGE 1 RUN TIME: 1116 PATIENT: TOYA ROJO Kelin ACCT: [id number] LOC: MED U: [id number] AGE/SX: 73/M ROOM: [facility]9 RE01/24/[address]: LINO MARTINEZ MD : 1945 BED: 269 DIS: STATUS: ADM IN TLOC: SPEC #: [id number] KHANH: 01/24/19-161 STATUS: RES REQ #: [id number] RECD: 01/24/19-[address]: SHEKHAR ROBLERO MD SOURCE: BLOOD LINE ENTR: 01/24/19-[address] [facility] [address]: OSWALD ANDERSEN MD [facility]: ORDERED: BCGS, CULT BLOOD Procedure Result Verified BLOOD CULTURE GRAM STAIN Final 01/25/19-075 AEROBIC BOTTLE POSITIVE GRAM NEGATIVE RODS POSITIVE BLOOD CULTURE GRAM STAIN REPORT CALLED TO: JOSE KING RN DATE/TIME REPORT CALLED: 01-25-19 07:55 BY BLOOD CULTURE Preliminary 01/27/19-1115 Organism 1 HAEMOPHILUS INFLUENZAE GROWTH PRESENT IN THE AEROBIC BOTTLE BETA LACTAMASE: NEGATIVE UNABLE TO PERFORM SUSCEPT TEST BY OUR METHODS NO GROWTH IN ANAEROBIC BOTTLE AT THIS TIME [facility] *LIVE* [address] [place] [address] BEAU MAYERS M.D., DIRECTOR OF LABORATORY SERVICES PRASAD VIRGEN M.D., PATHOLOGIST RUN DATE: 01/27/19 Specimen Inquiry Report PAGE 1 RUN TIME: 1118 PATIENT: TOYA ROJO ACCT: [id number] LOC: [facility] U: [id number] AGE/SX: 73/M ROOM: 2269 RE01/24/[address]: LINO MARTINEZ MD : 1945 BED: 269 DIS: STATUS: ADM IN TLOC: SPEC #: [id number] KHANH: 01/24/19 STATUS: RES REQ #: [id number] RECD: 01/24/[address] [facility] [address]: SHEKHAR ROBLERO MD SOURCE: BLOOD PER ENTR: 01/24/19-[address] [facility] [address]: OSWALD ANDERSEN MD [facility]: ORDERED: BCGS, CULT BLOOD Procedure Result Verified -- BLOOD CULTURE GRAM STAIN Final 01/25/19 AEROBIC BOTTLE POSITIVE GRAM NEGATIVE RODS POSITIVE BLOOD CULTURE GRAM STAIN REPORT CALLED TO: JOSE KING RN DATE/TIME REPORT CALLED: 05/26/19 07:55 BY [facility] BLOOD CULTURE Preliminary 01/27/19-1118 Organism 1 HAEMOPHILUS INFLUENZAE GROWTH PRESENT IN THE AEROBIC BOTTLE BETA LACTAMASE: NEGATIVE UNABLE TO PERFORM SUSCEPT TEST BY OUR METHODS NO GROWTH IN ANAEROBIC BOTTLE AT THIS TIME Imaging PATIENT NAME: Toya Rojo : 1945 MR: [id number] V: [id number] EXAM DATE: ORDERING PHYSICIAN: SHEKHAR ROBLERO TECHNOLOGIST: Location: [facility] Patient: Toya Rojo : 1945 Visit/Account:[id number] Date of Sevice: 01/24/2019 CHEST PA LAT Additional pertinent History: Chest pain COMPARISON STUDIES: 09/03/2016 FINDINGS: Support lines and catheters: Oxygen tubing Lungs and Pleura: There is a dense ovoid opacity extending from the posterior right sixth rib to the posterior ninth rib measuring 12 x 5.5 cm in dimension. There is a peripheral hazy opacity circumscribing the superior medial and inferior aspects of this opacity partially obscuring the medial aspect of the left hemidiaphragm on the AP and posterior aspect of the hemidiaphragm on the lateral. Right lung field is clear.. Heart and vasculature: Negative. Dora and Mediastinum: Negative. Bones and Chest wall: Negative. Upper Abdomen: Negative. IMPRESSION: 1. Parenchymal mass density in the left lung. Differential includes both pneumonic and neoplastic processes. Recommend clinical correlation and appropriate follow-up. Report Dictated By: Bobby Watt MD at 01/24/2019 4:33 PM Report E-Signed By: Bobby Watt MD at 01/24/2019 4:37 PM WSN:[id number] PATIENT NAME: Toya Rojo : 1945 MR: [id number] V: [id number] EXAM DATE: ORDERING PHYSICIAN: SHEKHAR ROBLERO TECHNOLOGIST: Location: [facility] Patient: Toya Rojo : 1945 Visit/Account:[id number] Date of Sevice: 01/24/2019 EXAMINATION: CTA of the chest with IV contrast HISTORY: Dyspnea. Left-sided atypical infiltrate. COMPARISON: Chest radiograph from the same day. TECHNIQUE: Pulmonary embolus protocol - Thin-slice axial imaging of the chest was performed during maximal pulmonary arterial opacification with intravenous nonionic iodinated contrast. 3D coronal slab MIPs and 2D reconstructions in the coronal and sagittal planes were performed to aid in pulmonary embolus detection. [employer]apper images have been stored on PACS. CONTRAST: 75 mL of IV Isovue-370 One of the following dose optimization techniques was utilized in the performance of this exam: Automated exposure control; adjustment of the mA and/or kV according to the patient's size; or use of an iterative reconst ruction technique. Specific details can be referenced in the facility's radiology CT exam operational policy. FINDINGS: CTA CHEST: Please note that this exam is optimized for assessment of the pulmonary arteries and is not intended as a diagnostic study of the thoracic aorta, coronary arteries or venous structures. Angiographic Findings: Pulmonary arteries: There are no filling defects in the main, right, left, lobar, segmental or visualized sub-segmental branches of the pulmonary arterial system. Other vasculature: Mild calcified plaque of the thoracic aorta. Additional non-angiographic findings: Lungs / Pleura: Extensive consolidation in the left lung within the upper and lower lobes. There is bronchiectasis in the left lower lobe and volume loss in the left lower lobe. There is a small left pleural effusion. There is patchy opacification in the airways in the left lung. Mediastinum / Dora: Negative. Heart / Pericardium: Negative. Musculoskeletal / Body wall: Chronic healed fracture deformities of multiple left-sided ribs. Multilevel disc degenerative changes in the spine. Lymph node assessment: Multiple subcentimeter mediastinal lymph nodes. Lower neck: Negative. Visualized upper abdomen: Multiple hepatic cysts. A 1.2 cm hypoattenuating lesion in the head of the pancreas. IMPRESSION: No evidence of pulmonary embolism. Extensive consolidation in the left lung which likely represents pneumonia. There is also bronchiectasis and volume loss in the left lower lung lobe. Small left pleural effusion. A 1.2 cm hypoattenuating lesion in the neck of the pancreas which has been noted on multiple previous examinations and is unchanged. Report Dictated By: Lico Javed MD at 01/24/2019 7:35 PM Report E-Signed By: Lico Javed MD at 01/24/2019 7:52 PM WSN:[id number] EKG PATIENT NAME: TOYA ROJO : [id number] MR: [id number] V: [id number] EXAM DATE: ORDERING PHYSICIAN: SHEKHAR ROBLERO TECHNOLOGIST: MOIRA Test Reason : CHEST PAIN Blood Pressure : / mmHG Vent. Rate : 115 BPM Atrial Rate : 115 BPM P-R Int : 142 ms QRS Dur : 132 ms QT Int : 354 ms P-R-T Axes : 054 -08 019 degrees QTc Int : 489 ms Sinus tachycardia Right bundle branch block Abnormal ECG When compared with ECG of 22-FEB-2014 13:31, Vent. rate has increased BY 45 BPM T wave inversion now evident in Anterior leads Confirmed by LINO MARTINEZ ([id number]) on 01/24/2019 7:09:35 PM Referred By: OSBALDO Confirmed By:LINO MARTINEZ Condition: Improved Discharge: Home, Self Care Time Spent: > 30 min Discharge Instructions Home Meds Active Scripts Prednisone 10 Mg Tab (PREDNISONE 10 MG TAB) 10 Mg Tablet, 30 MG PO QDAY, #12 TAB 0 Refills Three tabs a day for two days, then two tabs a day for two days, then one tab a day for two days, then off. Prov:JANETH JIM MD 01/28/19 Azithromycin 250 Mg Tab (AZITHROMYCIN 250 MG TAB) 250 Mg Tablet, 1 TAB PO QDAY for 30 Days, #30 TAB 1 Refill Start the day you stop the Omnicef (cefdinir). Pulmonology will decide whether to have you continue this. Prov:JANETH JIM MD 01/28/19 Cefdinir 300 Mg Cap (OMNICEF 300 MG CAP (OR EQUIV)) 300 Mg Cap, 300 MG PO BID for 10 Days, #20 CAP 0 Refills Prov:JANETH JIM MD 01/28/19 Reported Medications Sildenafil Citrate (VIAGRA) 100 Mg Tablet, 1 TAB PO QDAY PRN for sexual activity 12/28/14 Glucosamine Hcl/Chondr Duke A Na (OSTEO BI-FLEX CAPLET) 1 Each Tablet, 1 TAB PO QDAY 06/29/14 Levothyroxine Sodium (LEVOXYL) 125 Mcg Tablet, 1 TAB PO QDAY 06/28/14 Albuterol Sulfate 90 Mcg/Act (PROAIR HFA 90 MCG/ACT) 8.5 Gm Hfa.aer.ad, 2 PUFF IH QID PRN for shortness of breath 06/28/14 Multivitamin (DAILY MULTIPLE VITAMIN) 1 Each Tablet, 1 TAB PO DAILY 06/28/14 Meloxicam (MOBIC) 15 Mg Tablet, 1 TAB PO QDAY PRN for pain 06/28/14 Discontinued Scripts Guaifenesin/Codeine (GUAIFENESIN-CODEINE SYRUP) 5 Ml Syrp, 5 ML PO Q6H PRN for COUGH, #120 ML 0 Refills Prov:KEISHA ACE MD 09/03/16 Methylprednisolone (METHYLPREDNISOLONE) 4 Mg Tab.ds.pk, 4 MG PO DIRECTED, #1 PACK 0 Refills Prov:KEISHA ACE MD 09/03/16 Azithromycin (ZITHROMAX) 250 Mg Tablet, 2 TAB PO DIRECTED, #6 TAB 0 Refills Take 2 tablets today, then one daily for 4 more days. Prov:KEISHA ACE MD 09/03/16 Diet: Regular Activity: As Tolerated, No Exertion Special Instructions: Follow up with [facility] primary care provider and pulmonology in next 5-10 days or sooner if any problems. Home oxygen at 1L via nasal cannula during waking hours and 3L with BiPAP during sleep. Return to ER if any problems. Copies to: DIPIKA MITCHELL ; Venous Thromboembolism Antithrombotics Is Pt On Any Antithrombotics?: No Problem Qualifiers (1) Pneumonia: Pneumonia type: due to unspecified organism Laterality: left Lung location: unspecified part of lung Qualified Codes: J18.9 - Pneumonia, unspecified organism JANETH JIM MD January 28, 2019 09:42
== END 2019-01-28 11:30 | disposition home or self-care (01) | DRG 871 ==
LOC: ER 15:11 → MED 20:19 → UNDOADMIN 20:19
PROVIDERS: ADMIT Internal Medicine; ATTEND Internal Medicine
DX: A41.3 Sepsis due to Hemophilus influenzae (principal); J18.9 Pneumonia, unspecified organism; J47.0 Bronchiectasis with acute lower respiratory infection; J47.1 Bronchiectasis with (acute) exacerbation; E22.2 Syndrome of inappropriate secretion of antidiuretic hormone; R09.02 Hypoxemia; E86.0 Dehydration; G47.33 Obstructive sleep apnea (adult) (pediatric); E03.9 Hypothyroidism, unspecified
CPT/HCPCS: 36415; 71046; 71275; 81001; 82040; 82247; 82310; 82374; 82435; 82565; 82947; 83605; 84075; 84132; 84155; 84295; 84450; 84460; 84484; 84520; 85025; 87040; 87077; 93005; 94640; 94667; 94668; 96361; 96365; 96367; 96375; 99285; J0456; J0692; J0696; J1650; J2930; J3480; J7050; J7120; J7512; Q9967

== ENCOUNTER 2019-03-08 12:27 | Emergency (ER) | payer MEDICARE ==
[2019-01-25 10:11] VITALS: Wt 72.6 kg
[~2019-03-08 12:27] MED LIST changes: +AZIT-18 PO; +CEF300 PO; +PRED-1 PO
--- NOTE | 2019-03-08 12:37 | ER Report ---
History and Physical Time Seen By MD: 12:35 Hx. of Stated Complaint: PATIENT REPORTS SOME SOB AND PAIN IN THE CHEST WHEN BREATHING IN. WAS IN THE HOSPITAL IN DECEMBER FOR PNEUMONIA, AND REPORTS FEELING SIMILAR HPI/ROS CHIEF COMPLAINT: Chest pain, shortness of breath HISTORY OF PRESENT ILLNESS: 73-year-old male patient presents to emergency room with complaint of chest pain and shortness of breath. Patient states it feels very similar to when he had pneumonia in December. Patient states that when he woke up today he was having hard time sleeping, he is getting off the L5 cough, when an exercise. Was able to exercise like normal. He does have discomfort with taking deep breaths. States the pain is bilateral upper chest. He denies any fevers, chills, nausea, vomiting or diarrhea. He states he does have some irritation to his throat. He states he seemed to have a lot of postnasal drainage. He states he did take some [id number] medication for this with no improvement. He states he has had a dry cough. REVIEW OF SYSTEMS: Respiratory: As noted above Cardiovascular: As noted above Gastrointestinal: No vomiting, no abdominal pain. Musculoskeletal: No back pain. Allergies: Coded Allergies: No Known Drug Allergies (Unverified , 12/28/14) Home Meds Active Scripts Doxycycline Hyclate (DOXYCYCLINE HYCLATE) 100 Mg Tablet, 100 MG PO BID, #14 TAB Prov:TARIQ OROZCO 03/08/19 Prednisone 10 Mg Tab (PREDNISONE 10 MG TAB) 10 Mg Tablet, 30 MG PO QDAY, #12 TAB 0 Refills Three tabs a day for two days, then two tabs a day for two days, then one tab a day for two days, then off. Prov:JANETH JIM MD 01/28/19 Azithromycin 250 Mg Tab (AZITHROMYCIN 250 MG TAB) 250 Mg Tablet, 1 TAB PO QDAY for 30 Days, #30 TAB 1 Refill Start the day you stop the Omnicef (cefdinir). Pulmonology will decide whether to have you continue this. Prov:JANETH JIM MD 01/28/19 Cefdinir 300 Mg Cap (OMNICEF 300 MG CAP (OR EQUIV)) 300 Mg Cap, 300 MG PO BID for 10 Days, #20 CAP 0 Refills Prov:JANETH JIM MD 01/28/19 Reported Medications Sildenafil Citrate (VIAGRA) 100 Mg Tablet, 1 TAB PO QDAY PRN for sexual activity 12/28/14 Glucosamine Hcl/Chondr Duke A Na (OSTEO BI-FLEX CAPLET) 1 Each Tablet, 1 TAB PO QDAY 06/29/14 Levothyroxine Sodium (LEVOXYL) 125 Mcg Tablet, 1 TAB PO QDAY 06/28/14 Albuterol Sulfate 90 Mcg/Act (PROAIR HFA 90 MCG/ACT) 8.5 Gm Hfa.aer.ad, 2 PUFF IH QID PRN for shortness of breath 06/28/14 Multivitamin (DAILY MULTIPLE VITAMIN) 1 Each Tablet, 1 TAB PO DAILY 06/28/14 Meloxicam (MOBIC) 15 Mg Tablet, 1 TAB PO QDAY PRN for pain 06/28/14 Discontinued Scripts Doxycycline Hyclate (DOXYCYCLINE HYCLATE) 100 Mg Tablet, 100 MG PO BID, #14 TAB Prov:TARIQ OROZCO DRIER ATTENDANT 03/08/19 Past Medical/Surgical History Patient has a past medical history of bronchiectasis, sleep apnea, pneumonia, COPD, cyst on liver, 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 Patient has surgical history of right inguinal hernia repair, left wrist surgery, bilateral thumb surgery, bilateral shoulder surgery, varicose vein stripping. Reviewed Nurses Notes: Yes Hx Smoking: No Smoking Status: Never Smoker Exposure to Second Hand Smoke?: No Hx Substance Use Disorder: No Hx Alcohol Use: Yes (2-3 GLASSES OF WINE A DAY) Constitutional Vital Sign - Last 24 Hours 03/08/19 03/08/19 03/08/19 03/08/19 12:29 12:32 12:47 13:00 Temp 98.5 Pulse 109 92 Resp 18 24 B/P (MAP) 146/96 (113) 146/96 140/93 (109) Pulse Ox 91 90 O2 Delivery Room Air 03/08/19 03/08/19 03/08/19 13:07 13:27 13:30 Pulse 84 72 Resp 16 10 B/P (MAP) 123/91 (102) Pulse Ox 91 91 Physical Exam General Appearance: The patient is alert, has no immediate need for airway protection and no current signs of toxicity. Respiratory: Chest is non tender, lungs are clear to auscultation. Cardiac: regular rate and rhythm Gastrointestinal: Abdomen is soft and non tender, no masses, bowel sounds normal. Musculoskeletal: Neck: Neck is supple and non tender. Extremities have full range of motion and are non tender. Skin: No rashes or lesions. DIFFERENTIAL DIAGNOSIS: After history and physical exam differential diagnosis was considered for shortness of breath including but not limited to pulmonary infectious process, COPD, asthma, pulmonary embolus and congestive heart failure. Medical Decision Making Data Points Result Diagram: 03/08/19 1238 03/08/19 1238 Laboratory Hematology Test 03/08/19 12:38 Red Blood Count 4.62 M/uL (4.00-5.60) Mean Corpuscular Volume 91.4 fL (80.0-96.0) Mean Corpuscular Hemoglobin 31.6 pg (26.0-33.0) Mean Corpuscular Hemoglobin Concent 34.6 g/dL (32.0-36.0) Red Cell Distribution Width 14.0 % (11.5-14.5) Mean Platelet Volume 7.1 fL (7.2-11.1) Neutrophils (%) (Auto) 65.1 % (39.4-72.5) Lymphocytes (%) (Auto) 26.6 % (17.6-49.6) Monocytes (%) (Auto) 5.8 % (4.1-12.4) Eosinophils (%) (Auto) 1.7 % (0.4-6.7) Basophils (%) (Auto) 0.8 % (0.3-1.4) Nucleated RBC Relative Count (auto) 0.0 /100WBC Neutrophils # (Auto) 6.4 K/uL (2.0-7.4) Lymphocytes # (Auto) 2.6 K/uL (1.3-3.6) Monocytes # (Auto) 0.6 K/uL (0.3-1.0) Eosinophils # (Auto) 0.2 K/uL (0.0-0.5) Basophils # (Auto) 0.1 K/uL (0.0-0.1) Nucleated RBC Absolute Count (auto) 0.00 K/uL Sodium Level 140 mmol/L (137-145) Potassium Level 3.9 mmol/L (3.5-5.0) Chloride Level 106 mmol/L (98-107) Carbon Dioxide Level 24 mmol/L (22-30) Blood Urea Nitrogen 11 mg/dl (9-21) Creatinine 0.70 mg/dl (0.66-1.25) Glomerular Filtration Rate Calc > 60.0 Random Glucose 133 mg/dl (75-110) Calcium Level 9.2 mg/dl (8.4-10.2) Total Bilirubin 0.6 mg/dl (0.2-1.3) Aspartate Amino Transf (AST/SGOT) 38 U/L (0-35) Alanine Aminotransferase (ALT/SGPT) 34 U/L (0-56) Alkaline Phosphatase 75 U/L (0-126) Troponin I < 0.012 ng/ml Total Protein 7.4 g/dl (6.3-8.2) Albumin 4.1 g/dl (3.5-5.0) Chemistry Test 03/08/19 12:38 White Blood Count 9.8 k/uL (4.5-11.0) Red Blood Count 4.62 M/uL (4.00-5.60) Hemoglobin 14.6 g/dL (14.0-18.0) Hematocrit 42.2 % (42.0-52.0) Mean Corpuscular Volume 91.4 fL (80.0-96.0) Mean Corpuscular Hemoglobin 31.6 pg (26.0-33.0) Mean Corpuscular Hemoglobin Concent 34.6 g/dL (32.0-36.0) Red Cell Distribution Width 14.0 % (11.5-14.5) Platelet Count 250 K/uL (150-450) Mean Platelet Volume 7.1 fL (7.2-11.1) Neutrophils (%) (Auto) 65.1 % (39.4-72.5) Lymphocytes (%) (Auto) 26.6 % (17.6-49.6) Monocytes (%) (Auto) 5.8 % (4.1-12.4) Eosinophils (%) (Auto) 1.7 % (0.4-6.7) Basophils (%) (Auto) 0.8 % (0.3-1.4) Nucleated RBC Relative Count (auto) 0.0 /100WBC Neutrophils # (Auto) 6.4 K/uL (2.0-7.4) Lymphocytes # (Auto) 2.6 K/uL (1.3-3.6) Monocytes # (Auto) 0.6 K/uL (0.3-1.0) Eosinophils # (Auto) 0.2 K/uL (0.0-0.5) Basophils # (Auto) 0.1 K/uL (0.0-0.1) Nucleated RBC Absolute Count (auto) 0.00 K/uL Glomerular Filtration Rate Calc > 60.0 Calcium Level 9.2 mg/dl (8.4-10.2) Total Bilirubin 0.6 mg/dl (0.2-1.3) Aspartate Amino Transf (AST/SGOT) 38 U/L (0-35) Alanine Aminotransferase (ALT/SGPT) 34 U/L (0-56) Alkaline Phosphatase 75 U/L (0-126) Troponin I < 0.012 ng/ml Total Protein 7.4 g/dl (6.3-8.2) Albumin 4.1 g/dl (3.5-5.0) EKG/Imaging Imaging 2 VIEWS CHEST INDICATION: Chest Pain COMPARISON: January 24, 2019. FINDINGS: Heart size within normal limits. Significant decrease in consolidation within the left perihilar lung with there is a residual interstitial opacities. Lungs are otherwise clear. Mild chronic interstitial changes. There is no pneumothorax or pleural effusion. IMPRESSION: 1. Interstitial opacities within the left perihilar lung which are likely related to resolving pneumonia seen on prior imaging. Cannot completely exclude a recurrent process although felt unlikely. Report Dictated By: Florencio Jones MD at 03/08/2019 1:13 PM Report E-Signed By: Florencio Jones MD at 03/08/2019 1:15 PM ED Course/Re-evaluation ED Course Patient was admitted on exam room, history of the skull were obtained. Differential diagnoses were considered. On examination lungs are coarse in the left upper lobe, heart is regular, abdomen soft nontender. With patient complaining of chest pain a CBC, CMP, EKG, chest x-ray, troponin were done. The chest x-ray did show some residual infiltrate in the left upper lobe. This is possibly related to the pneumonia which is treated for the end of December. However with him not feeling well to starting today I do have concerns might be some infiltrate but has started to develop. I discussed the lab work with the patient which is pretty unremarkable. I discussed the results of the x-ray. We will go ahead and treat him with antibiotics for the next 7 days. I would like him follow-up with his service cashier in the next 1-2 weeks. He is return to emergency room if condition worsens. He is to increase fluid intake, get plenty of rest, continue with his other medications as well. Patient verbalized understanding and agreement with plan. Decision to Disposition Date: Mar 08, 2019 Decision to Disposition Time: 13:42 Depart Departure Latest Vital Signs Vital Signs Date Time Temp Pulse Resp B/P (MAP) Pulse Ox O2 Delivery O2 Flow Rate FiO2 03/08/19 13:30 123/91 (102) 03/08/19 13:27 72 10 91 03/08/19 12:32 98.5 Room Air Impression: Primary Impression: Acute upper respiratory infection Condition: Improved Disposition: HOME OR SELF-CARE Referrals: OSWALD ANDERSEN MD (PCP) New Scripts Doxycycline Hyclate (DOXYCYCLINE HYCLATE) 100 Mg Tablet 100 MG PO BID, #14 TAB Prov: TARIQ OROZCO 03/08/19 Patient Instructions: Upper Respiratory Infection (ED) Additional Instructions: Increase fluid intake. Get plenty of rest. Follow up with your service cashier in the next 1-2 weeks. Return to the ER if condition worsens. Continue with your normal medications. TARIQ OROZCO Mar 08, 2019 12:37
[2019-03-08] MEDS ORDERED: ASPIRIN 81 MG CHEW PO ONE (12:50)
--- NOTE | 2019-03-08 12:53 | EKG ---
FACILITY: [facility] - [place], [place] PATIENT NAME: GLEN ROJO : [id number] MR: [id number] V: [id number] EXAM DATE: ORDERING PHYSICIAN: TARIQ OROZCO TECHNOLOGIST: DOMINICK Test Reason : CP Blood Pressure : / mmHG Vent. Rate : 092 BPM Atrial Rate : 092 BPM P-R Int : 128 ms QRS Dur : 140 ms QT Int : 402 ms P-R-T Axes : 066 -11 041 degrees QTc Int : 497 ms Normal sinus rhythm Right bundle branch block Abnormal ECG When compared with ECG of 24-JAN-2019 15:39, No significant change was found Confirmed by NIKOLE MORGAN ([id number]) on 03/08/2019 1:27:24 PM Referred By: OSBALDO Confirmed By:NIKOLE MORGAN
[2019-03-08 13:18] LABS: PLATELET COUNT, AUTOMATED 250 K/uL (150-450)
--- NOTE | 2019-03-08 13:21 | RADIOLOGY IMAGING REPORT ---
FACILITY: [facility] - [place] PATIENT NAME: Toya Banuelos : 1945 MR: [id number] V: [id number] EXAM DATE: ORDERING PHYSICIAN: TARIQ OROZCO TECHNOLOGIST: Location[place] [facility] [place] Patient: Toya Banuelos : 1945 Visit/Account:[id number] Date of Sevice: 03/08/2019 2 VIEWS CHEST INDICATION: Chest Pain COMPARISON: January 24, 2019. FINDINGS: Heart size within normal limits. Significant decrease in consolidation within the left perihilar lung with there is a residual interst itial opacities. Lungs are otherwise clear. Mild chronic interstitial changes. There is no pneumothorax or pleural effusion. IMPRESSION: 1. Interstitial opacities within the left perihilar lung which are likely related to resolving pneumo angelia seen on prior imaging. Cannot completely exclude a recurrent process although felt unlikely. Report Dictated By: Florencio Jones MD at 03/08/2019 1:13 PM Report E-Signed By: Florencio Jones MD at 03/08/2019 1:15 PM WSN:[id number]
[2019-03-08 13:30] VITALS: BP 123/91
[2019-03-08] MEDS ORDERED: DOXY-179 PO (13:45)
== END 2019-03-08 13:59 | disposition home or self-care (01) ==
LOC: ER 12:33
DX: J06.9 Acute upper respiratory infection, unspecified (principal); E03.9 Hypothyroidism, unspecified; J44.9 Chronic obstructive pulmonary disease, unspecified; Z79.899 Other long term (current) drug therapy
CPT/HCPCS: 71046; 84484; 85025; 93005; 99283; A9270; 82040; 82247; 82310; 82374; 82435; 82565; 82947; 84075; 84132; 84155; 84295; 84450; 84460; 84520